=== PATIENT | male | born 1990 | race African-American/Black ===

== ENCOUNTER 2024-12-19 12:14 | Emergency (ER) | payer SELFPAY ==
[~2024-12-19] VITALS: Ht 172.7 cm; Wt 119.0 kg
[2024-12-19 12:38] VITALS: TEMP 37.1; O2SAT 99
[2024-12-19] MEDS: KETOROLAC 15MG/ML VIAL IM ONE (13:25)
[2024-12-19 15:14] VITALS: BP 140/88; PULSE 81; RESP 16; O2SAT 98
== END 2024-12-19 15:15 | disposition home or self-care (01) ==
LOC: ER 12:14
DX: S89.92XA Unspecified injury of left lower leg, initial encounter (principal); M79.662 Pain in left lower leg; J45.909 Unspecified asthma, uncomplicated; X58.XXXA Exposure to other specified factors, initial encounter; Y93.61 Activity, american tackle football; Y92.89 Other specified places as the place of occurrence of the external cause; Y99.8 Other external cause status
CPT/HCPCS: 73560; 73590; 96372; 99284; J1885; A6449; Z7610